=== PATIENT | female | born 1930 | race Caucasian/White ===

== ENCOUNTER → 2016-11-02 | Outpatient (CLI) | payer MEDICARE, OTHER ==
[~2016-11-02] MED LIST: ALLOPURINOL300 MG PO; CATAPRES-DPS0.1 MG PO; CLARITIN10 MG PO; COLACE-DPS100 MG PO; COREG DPS12.5 MG PO; LANOXIN DPS0.125 MG PO; LASIX DPS20 MG PO; LEVOTHYROXINE50 MCG PO; MAALOX DPS30 ML PO; MACROBID100 MG PO; MUCINEX600 MG PO; NASONEX NASAL S17 GM NS; PEPCID DPS20 MG PO; PRED FORTE 1% DP5 ML OD; SLOW-MAG64 MG PO; SURFAK240 MG PO; SYNTHROID DPS0.05 MG PO; TEARS NATURAL D15 ML OU; TRANXENE DPS PO; TYLENOL DPS325 MG PO; ULTRAM DPS50 MG PO; ZYLOPRIM-DPS300 MG PO; [UNRECOGNIZED DRUG - OTHER] IV
== END | disposition home or self-care (01) ==
DX: I48.91 Unspecified atrial fibrillation (principal); I51.7 Cardiomegaly; R07.9 Chest pain, unspecified; I35.1 Nonrheumatic aortic (valve) insufficiency